=== PATIENT | male | born 2000 | race Caucasian/White ===

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

== ENCOUNTER 2021-03-02 04:20 | Emergency (ER) | payer BC ==
[~2021-03-02] VITALS: Ht 177.8 cm; Wt 59.0 kg
[2021-03-02 04:30] VITALS: BP 126/70
--- NOTE | 2021-03-02 04:30 | NUR ---
TO CHAIR C , BROUGHT IN BY JUANITO GOEL FOR PREBOOK
[2021-03-02] MEDS ORDERED: NAPR-54 PO (04:55)
[2021-03-02 05:01] VITALS: BP 126/70
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
== END 2021-03-02 05:02 ==
LOC: MED 04:20
DX: S42.002A Fracture of unspecified part of left clavicle, initial encounter for closed fracture (principal); Z02.89 Encounter for other administrative examinations; Z88.0 Allergy status to penicillin; V98.8XXA Other specified transport accidents, initial encounter; Y93.89 Activity, other specified; Y92.89 Other specified places as the place of occurrence of the external cause; Y99.8 Other external cause status
CPT/HCPCS: 73030; 99283